=== PATIENT | female | born 2005 | race Hispanic/Latino ===

== ENCOUNTER 2024-04-27 23:02 | Emergency (ER) | payer SELFPAY ==
[~2024-04-27] VITALS: Ht 160 cm; Wt 70.0 kg
[2024-04-28 00:23] VITALS: PULSE 81; RESP 20; TEMP 99.2
[2024-04-28 01:07] LABS: CLARITY,URINE CLEAR (CLEAR); COLOR,URINE YELLOW (YELLOW); GLUCOSE, URINE NEGATIVE (NEGATIVE); KETONES,URINE NEGATIVE (NEGATIVE); LEUKOCYTE ESTERASE ,URINE NEGATIVE (NEGATIVE); NITRITE,URINE NEGATIVE (NEGATIVE); PH,URINE 7 (5 - 7); PROTEIN,URINE DIPSTICK NEGATIVE (NEGATIVE); URINE UROBILINOGEN 0.2 mg/dL (0.2 - 1)
[2024-04-28 01:08] LABS: BILIRUBIN,URINE NEGATIVE (NEGATIVE)
[2024-04-28 01:10] LABS: BACTERIA,URINE RARE /HPF; EPITHELIAL CELLS,URINE FEW /LPF; PREGNANCY TEST, URINE POSITIVE (NEGATIVE); RBC,URINE 0-5 /HPF (0-5); WBC,URINE (MAN) 0-5 /HPF (0-5)
[2024-04-28 01:21] VITALS: BP 140/98; PULSE 99; RESP 20; TEMP 98.9; O2SAT 100
== END 2024-04-28 01:23 | disposition home or self-care (01) ==
LOC: ER 23:07
DX: R50.9 Fever, unspecified (principal); R30.0 Dysuria; Z33.1 Pregnant state, incidental
CPT/HCPCS: 81001; 81025; 99283